=== PATIENT | male | born 1980 | race Caucasian/White ===

== ENCOUNTER 2021-12-19 12:21 | Emergency (ER) | payer OTHER ==
[2021-12-19] MEDS ORDERED: Doxycycline Monohydrate 100 MG Cap PO ONE (12:22)
[2021-12-19] MEDS ORDERED: Doxycycline Monohydrate 100 MG Cap ONE (13:12)
== END 2021-12-19 13:13 | disposition home or self-care (01) ==
LOC: DL.ED 12:21
DX: J01.00 Acute maxillary sinusitis, unspecified (principal); Z86.16 Personal history of COVID-19
CPT/HCPCS: 99283; A9270; 99282